=== PATIENT | female | born 1940 | race Caucasian/White ===

== ENCOUNTER → 2017-11-03 | Outpatient (REF) | payer MEDICARE, BC ==
[~2017-11-03] MED LIST: ALE70 PO; ARIP15TA9 PO; ASPI-757 PO; BIOT25008 PO; BUP100 PO; BUPR-163 PO; CALC-963 PO; CEPH-13 PO; CHLO50TA22 PO; CIT20 PO; CITA-156 PO; CLIN75CA3 PO; DAR100 PO; DESV50TA9 PO; DOC100 PO; EST625 PO; ESTR0.5T16 PO; ESTR0.62 PO; FLUO-202 PO; FLUO5DRO8 OP; GLUC-178 PO; GUAI1200 PO; HYDR-4309 PO; HYDR12.561 PO; LAMO150T36 PO; LAMOT150PT PO; LEV125 PO; LEVO150T72 PO; LIS20 PO; LISI-374 PO; LURA20TA PO; LURA40TA3 PO; MELO-205 PO; MIRT-1 PO; MIRT-18 PO; MIRT-25 PO; MIRT-28 PO; MULT-820 PO; OLAN10TA25 PO; OXYC-865 PO; RIS35 PO; SULF-198 PO; TOP100 PO; TOPI100T PO; TRAZ100T31 PO; VENL150C61 PO
== END ==
LOC: ZZSENDIN 09:26
PROVIDERS: ATTEND Family Medicine
DX: R19.7 Diarrhea, unspecified (principal)
CPT/HCPCS: 83630; 87045; 87324; 87449

== ENCOUNTER → 2018-07-05 | Outpatient (CLI) | payer MEDICARE, BC ==
[~2018-07-05] MED LIST changes: -HYDR-4309 PO; +HYDR-653 PO; -MIRT-28 PO; +MIRT30TA10 PO
--- NOTE | 2018-07-05 11:53 | RADIOLOGY IMAGING REPORT ---
[facility] PATIENT NAME: Rhiannon Angel : 1940 MR: [id number] V: [id number] EXAM DATE: ORDERING PHYSICIAN: DAKOTA GUILLEN TECHNOLOGIST: Location: [facility] [place] Patient: Rhiannon Angel : 1940 Visit/Account:[id number] Date of Sevice: 07/05/2018 DEXA Scan Clinical history: Menopausal screening. Comparison: DEXA scan from 01/02/2014. LUMBAR SPINE: The bone mineral density (BMD) measured from L1-L4 correlates with a Z-score of 2.8 and a T-score of 1 which is Normal as defined by the World Health Organization. The corresponding risk of fracture in the lumbar spine is Not increased compared with a young adult reference population. This value has increase by 2.6 % since the prior study. More than 5% change is considered significant. HIP: Bone mineral density (BMD) measured in the LEFT total hip region correlates with a Z-score 0.7 and a T-score of x1.2 which is osteopenia as defined by the World Health Organization. The corresponding r isk of fracture in the hip is 2-3 times increased compared to a young adult reference population. Thi s value has decrease by 7.9 % since the prior study. More than 5% change is considered significant. T score left femoral neck -1.2 Bone mineral density (BMD) measured in the Femoral Neck region measures 0.874 g/cm?. IMPRESSION: 1. Lumbar spine: Normal. There has been 2.6% increase in the bone mineral density since the previou s exam. 2. Left Total Hip: Osteopenia. There has been 7.9% decrease in the bone mineral density since the p revious exam. 3. Femoral Neck: Bone Mineral Density is 0.874 g/cm? The next DEXA scan of this patient should include the following sites: L1-L4 and the left hip. FRAX? WHO Fracture Risk Assessment Tool link: <http://www.shef.ac.uk/FRAX/tool.jsp?locationValue=9> PLEASE NOTE: 1) The World Health Organization defines low BMD as follows: T-score Normal > -1 Osteopenia < -1 and > -2.5 Osteoporosis < -2.5 without fractures Established osteoporosis < -2.5 with fractures 2) In general, you may wish to consider: Diagnosis Treatment Follow-up DEXA Normal BMD Prevention 2-3 years Osteopenia Prevention/therapy 1-2 years Osteoporosis Therapy Yearly 3) Fracture risk estimated from the T-score is more accurate for vertebral fractures (often spontane ous) than for hip fractures. Report Dictated By: Corry Dooley MD at 07/05/2018 11:46 AM Report E-Signed By: Corry Dooley MD at 07/05/2018 11:47 AM WSN:[email or web address]
== END ==
LOC: RAD 06:54
PROVIDERS: ATTEND Family Medicine
DX: M85.852 Other specified disorders of bone density and structure, left thigh (principal)
CPT/HCPCS: 77080